=== PATIENT | female | born 1995 | race Two or more races ===

== ENCOUNTER 2024-08-17 11:16 | Emergency (ER) | payer MEDICAID ==
[~2024-08-17] VITALS: Ht 182.9 cm; Wt 74.8 kg
[2024-08-17 13:07] LABS: APPEARANCE,URINE CLEAR (CLEAR); BILIRUBIN,URINE NEGATIVE (NEGATIVE); BLOOD, URINE NEGATIVE Ery/uL (NEGATIVE); COLOR,URINE YELLOW (YELLOW); KETONES,URINE NEGATIVE (NEGATIVE); LEUKOCYTE ESTERASE ,URINE NEGATIVE (NEGATIVE); NITRITE, URINE NEGATIVE (NEGATIVE); PROTEIN,URINE NEGATIVE (NEGATIVE); UGLUCOSE NEGATIVE (NEGATIVE); UROBILINOGEN,URINE 0.2 EU/dL (0.2)
[2024-08-17 13:08] LABS: PREGNANCY TEST URINE QUAL NEGATIVE (NEGATIVE)
[2024-08-17 13:20] LABS: ALBUMIN 3.6 g/dL (3.4-5.0); BILIRUBIN,DIRECT 0.1 mg/dL (0.0-0.2); BILIRUBIN,TOTAL 0.5 mg/dL (0.2-1.0); CALCIUM, SERUM 8.7 mg/dL (8.5-10.1); CREATININE 0.9 mg/dL (0.6-1.3); POTASSIUM 3.7 mmol/L (3.5-5.1); TOTAL PROTEIN, SERUM 7.3 g/dL (6.4-8.2)
[2024-08-17 13:33] LABS: BASOPHILS % (AUTO) 0.2 % (0.0-2.0); EOSINOPHILS % (AUTO) 0.5 % (0.0-6.0); HEMATOCRIT 33 % (33-45); HEMOGLOBIN 11.1 g/dL (11.5-14.8); LYMPHOCYTES # (AUTO) 1.1 K/uL (0.8-4.8); LYMPHOCYTES % (AUTO) 13.7 % (20.0-44.0); MEAN CORPUSCULAR HEMOGLOBIN 30 PG (26.0-33.0); MEAN CORPUSCULAR HGB CONC 34 g/dl (31.0-36.0); MEAN CORPUSCULAR VOLUME 88 fL (82-100); MONOCYTES # (AUTO) 0.5 K/uL (0.1-1.30); MONOCYTES % (AUTO) 6.4 % (2.0-12.0); NEUTROPHILS # (AUTO) 6.1 K/uL (1.8-8.9); NEUTROPHILS % (AUTO) 79.2 % (43.0-81.0); PLATELET COUNT (AUTO) 156 K/uL (150-450); RED BLOOD CELL COUNT(AUTO) 3.74 MIL/uL (4.0-5.2); RED CELL DISTRIBUTION WIDTH 12.6 % (11.5-15.0); WHITE BLOOD COUNT (AUTO) 7.8 K/uL (4.3-11.0)
[2024-08-17] MEDS ORDERED: IOHEXOL-300 100 ML VIAL IV ONE (13:42)
[2024-08-17] MEDS ORDERED: IV NS 0.9% 250 ML IV ONE (13:42)
[2024-08-17] MEDS ORDERED: CT SWABBABLE VALVE TRANS SET 1 EA INFUS.SET MC ONE (13:43)
[2024-08-17 15:37] VITALS: BP 127/75; TEMP 98; O2SAT 99
== END 2024-08-17 15:38 | disposition home or self-care (01) ==
LOC: ER 11:21
DX: R10.12 Left upper quadrant pain (principal); R07.81 Pleurodynia; K50.90 Crohn's disease, unspecified, without complications; Z91.09 Other allergy status, other than to drugs and biological substances
CPT/HCPCS: 99285; 74177; 85025; 80048; 83690; 80076; 84703; 81003; 36415; J7050; Q9967